=== PATIENT | female | born 1990 | race African-American/Black ===

== ENCOUNTER 2020-07-05 15:15 | Outpatient (CLI) | payer OTHER, SELFPAY ==
--- NOTE | ~2020-07-05 | US_ITS ---
EXAMINATION: US OB <= 14 weeks fetus EXAM DATE: 07/05/2020 16:15 INDICATION: Routine care. Dating. 1st trimester. TECHNIQUE: Pelvic obstetrical transabdominal sonogram was performed by a technologist. There are mu ltiple grayscale and Doppler images available for interpretation. There are no earlier studies of th is gestation for comparison. FINDINGS: Uterus measures 10.8 x 5.4 x 6.9 cm. There is intrauterine gestation sac. pole with heart rate confirmed at 176 beats per minute. The 2.8 cm crown-rump length corresponds to estimated gestational age by ultrasound of 9 weeks 4 days, estimated date of confinement 02/03/2021. Yolk sac is identified. There is no sonographic evidence of subchorionic hemorrhage. Right ovary morpholog ically normal, the left is not identified. IMPRESSION: Live gestation age by ultrasound 9 weeks 4 days. Reviewed, dictated and finalized at location A. STERED NURSE TEACHER
== END 2020-07-05 15:16 | disposition home or self-care (01) ==
PROVIDERS: Visit Provider Obstetrics & Gynecology
DX: Z34.91 Encounter for supervision of normal pregnancy, unspecified, first trimester (principal); Z3A.09 9 weeks gestation of pregnancy
CPT/HCPCS: 76801

== ENCOUNTER 2020-09-04 11:33 | Outpatient (CLI) | payer OTHER, SELFPAY ==
--- NOTE | ~2020-09-04 | US_ITS ---
US OB /maternal detail DATE: 09/04/2020 12:29 INDICATION: anatomy screen TECHNIQUE: Real-time imaging and Doppler analysis COMPARISON: 07/05/2020 obstetrical ultrasound FINDINGS: Live hernandez intrauterine gestation, fetus in longitudinal lie, vertex presentation. Ante rior placenta. Subjectively normal amount of amniotic fluid. No cerebral ventriculomegaly. Normal cerebellum. Normal nuchal fold. The spine appe ars normal. Four-chamber heart with heart rate 147 bpm. The diaphragm is intact. No evide nce of hydronephrosis. Fluid is demonstrated in the stomach and urinary bladder. Three-vessel umbilical cord with normal insertion at abdominal wall. extremities are unre markable. female external genitalia. Biparietal diameter 4.11 cm; 18 weeks 3 days Head circumference 15.05 cm; 18 weeks 1 day Abdominal circumference 12.32 cm; 18 weeks 0 days Femur length 2.58 cm; 17 weeks 6 days Composite age by Hadlock formula is 18 weeks 1 day +/- 1 week 2 days; MAGGIE is 02/04/2021, compared to by LMP and 02/03/2021 by the prior ultrasound of 07/05/2020. Estimated weight is 216.5 +/- 32.5 g. Estimated weight-GP: 14.4% Head circumference/abdominal circumference 1.22, within normal range of 1.08-1.27. Femur length/head circumference 17.16, within normal range of 15.84-18.04 IMPRESSION: Normal anatomy screen Reviewed, dictated and finalized at Location A. Reviewed, dictated and finalized at location B. STILL OPERATOR IMPRESSION: Normal anatomy screen
== END 2020-09-04 11:34 | disposition home or self-care (01) ==
PROVIDERS: PCP Internal Medicine Infectious Disease; Visit Provider Obstetrics & Gynecology
DX: Z34.91 Encounter for supervision of normal pregnancy, unspecified, first trimester (principal); Z3A.00 Weeks of gestation of pregnancy not specified
CPT/HCPCS: 76805

== ENCOUNTER 2020-09-11 12:26 | Observation (INO) | payer OTHER, SELFPAY ==
--- NOTE | ~2020-09-11 | US_ITS ---
EXAMINATION: US OB limited DATE: 09/11/2020 13:17 INDICATION: Miscarriage at second trimester of . TECHNIQUE: Real-time ultrasound of the pelvis was performed. The interpreting radiologist was not pre sent for the study. COMPARISON: None. FINDINGS: There is a single living fetus in breech presentation. The placenta is anterior. heart rate is 144 beats per minute (bpm). There is no discernible amniotic fluid surrounding the fetus. IMPRESSION: 1. Single living fetus in breech presentation with heart rate of 142 bpm. 2. Oligohydramnios with no discernible amniotic fluid surrounding the fetus with subjectively normal amount fluid surrounding the fetus on the ultrasound performed one week prior. Correlate for leaking fluids. Reviewed, dictated and finalized at location A. SURE TESTER IMPRESSION: 1. Single living fetus in breech presentation with heart rate of 142 bpm . 2. Oligohydramnios with no discernible amniotic fluid surrounding the fetus wit h subjectively normal amount fluid surrounding the fetus on the ultrasound perf ormed one week prior. Correlate for leaking fluids.
[2020-09-11 12:36] VITALS: BP 155/92; PULSE 103; RESP 14; TEMP 36.6; O2SAT 100
--- NOTE | 2020-09-11 13:06 | PC.NURSE ---
OB here at this time with ultrasound
--- NOTE | 2020-09-11 13:20 | PC.NURSE ---
OB nurse at bedside w/ patient at this time.
[2020-09-11 13:21] VITALS: BP 144/98; PULSE 17; RESP 15; O2SAT 100
--- NOTE | 2020-09-11 13:21 | ED.FEMALEGU ---
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 Reports she went to wipe her vagina and there is mucus-like discharge that was pinkish and she felt like there is extra tissue within her vagina. No lower abdominal cramping or contractions. Denies overt vaginal bleeding. G1, P0 19 weeks in gestation. She sees Dr. Salgado. Review of Systems Review of Systems: All systems reviewed & are unremarkable except as noted in HPI and below Gastrointestinal: Gastrointestinal: Denies abdominal pain, Denies diarrhea, Denies nausea and Denies vomiting Genitourinary: Genitourinary: Reports abnormal vaginal bleeding, Denies hematuria, Denies dysuria and Denies vaginal discharge PMF Past Medical History Medical History (Updated 09/11/20 @ 13:47 by Farhan Koo MD) Healthy female adult Social History Social History (Updated 09/11/20 @ 13:47 by Farhan Koo MD) Smoking status: Never smoker Gender identity (if verbalized by the patient): Female Exam Narrative: Exam Narrative: GENERAL: Well-appearing, well-nourished, and in no acute distress. HEAD: Normocephalic, atraumatic. CHEST: Clear to auscultation. No respiratory distress. HEART: Regular rate and rhythm. Normal peripheral pulses. ABDOMEN: Soft, nontender, nondistended. EXTREMITIES: Normal range of motion. No edema. : Normal-appearing external genitalia. Speculum inserted and there were 2 feet from the fetus extending through the cervical os. Small amount mucus-like discharge, no bleeding. SKIN: Warm, dry, no rash. NEURO: Alert and oriented x3. PSYCH: Normal mood and affect. Course Reevaluation(s) Reevaluation #1: Ultrasound at bedside. Patient has a IUP without any fluid around the baby with heart tones at [address] D[address] case [address] 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 He does not want any of that medication be given in the ER and would like to be contacted by OB when she arrives. Date: 09/11/20 Time: 13:22 Vital Signs Vital signs: Vital Signs Temperature 97.8 F 09/11/20 12:36 Pulse Rate 103 H 09/11/20 12:36 Respiratory Rate 14 09/11/20 12:36 Blood Pressure 155/92 H 09/11/20 12:36 Pulse Oximetry 100 09/11/20 12:36 Temperature 97.8 F 09/11/20 12:36 Pulse Rate 89 09/11/20 13:34 Respiratory Rate 15 09/11/20 13:34 Blood Pressure 144/98 H 09/11/20 13:34 Pulse Oximetry 98 09/11/20 13:34 MDM - Female Genitourinary Imaging Data Radiologist's impression: ITS Impressions Obstetrics Ultrasound 09/11/20 13:21 IMPRESSION: 1. Single living fetus in breech presentation with heart rate of 142 bpm. 2. Oligohydramnios with no discernible amniotic fluid surrounding the fetus with subjectively normal amount fluid surrounding the fetus on the ultrasound performed one week prior. Correlate for leaking fluids. Discharge Plan Discharge Clinical Impression: , inevitable Patient Disposition: Still a Patient Condition: Stable
[2020-09-11 13:34] VITALS: BP 144/98; PULSE 89; RESP 15; O2SAT 98
--- NOTE | 2020-09-11 13:35 | OBADM ---
This patient, Jane Fair, admitted to the OB room Labor/Delivery/Recovery 110 for observation. Patient/family oriented to hospital policies and general routines including ID bracelet, bed and alarms, visiting hours, pain management, procedures, bathroom and other care routines, personal items, smoking policy, room service/diet, and visiting hours. Patient/Family are encouraged to report perceived risks to care and to ask questions if they do not understand what they are told or what they should do. Pt brought from ER due to 19week fetus with feet through cervix. No fluid noted on ultrasound. heart tones present.
--- NOTE | 2020-09-11 14:00 | PC.NURSE ---
Called Dr. Salgado to get orders. Report given to him from ER doctor. Hold orders from ER. Will call [place] to coordinate transfer. Will call with orders.
--- NOTE | 2020-09-11 15:17 | PC.NURSE ---
Dr. Salgado called with orders to discharge pt to drive to [facility]
--- NOTE | 2020-09-11 15:28 | PC.NURSE ---
Pt states that she doesn't have a ride to get to [place]. Requesting ambulance to transport. Called [place] to to coordinate transportation for pt. Instructed to have Dr. Salgado call with report.
--- NOTE | 2020-09-11 15:41 | PC.NURSE ---
Dr. Salgado called requesting to be transferred to pt's room to discuss plan of care. Dr. Salgado called back with plan of care. Instructed to discharge pt to drive to [place] for evaluation.
[2020-09-11 16:40] VITALS: BMI 51.3
--- NOTE | 2020-09-17 07:51 | PM.OBTRLD ---
OB - Triage/Final Diagnosis Visit Information Comments/Additional reasons for admission: I have assessed the risk for this patient, Jane Fair, and determined that she would benefit from observation care. Final Diagnosis (1) , inevitable: Code(s): O03.4 - Incomplete spontaneous without complication Status: Acute
== END 2020-09-11 16:35 | disposition home or self-care (01) ==
LOC: ANHED 13:25 → ANHLDR 13:44
PROVIDERS: Admitting Provider Obstetrics & Gynecology; Emergency Provider Emergency Medicine; PCP Internal Medicine Infectious Disease; Visit Provider Obstetrics & Gynecology
DX: O03.4 Incomplete spontaneous abortion without complication (principal); O41.02X0 Oligohydramnios, second trimester, not applicable or unspecified; Z3A.19 19 weeks gestation of pregnancy
CPT/HCPCS: 76815; 99285; G0378; G0379

== ENCOUNTER 2021-01-25 09:46 | Outpatient (CLI) | payer OTHER, SELFPAY ==
--- NOTE | ~2021-01-25 | US_ITS ---
EXAMINATION: US OB <= 14 weeks fetus EXAM DATE: 01/25/2021 11:28 INDICATION: Encounter for supervision of normal . 1st trimester. TECHNIQUE: Pelvic obstetrical transabdominal sonogram was performed by a technologist. There are mu ltiple grayscale and Doppler images available for interpretation. FINDINGS: Uterus measures 12.8 x 8.8 x 6.0 cm. There is intrauterine gestation sac. pole with heart rate confirmed at 169 beats per minute. The 3.1 cm crown-rump length corresponds to estimated gestational age by ultrasound of 10 weeks 0 days, estimated date of confinement 08/23/2021. Yolk sac is identified. There is no sonographic evidence of subchorionic hemorrhage. Right ovary measures 5.0 x 2.5 x 2.8 cm, may have the corpus luteal cyst. The left ovary measures 4.9 x 3.5 x 2.7 cm. Flow confirmed within both ovaries. IMPRESSION: Live intrauterine gestation, age by ultrasound 10 weeks 0 days. Reviewed, dictated and finalized at location B.
== END 2021-01-25 09:47 | disposition home or self-care (01) ==
PROVIDERS: PCP Internal Medicine Infectious Disease; Visit Provider Obstetrics & Gynecology
DX: Z34.91 Encounter for supervision of normal pregnancy, unspecified, first trimester (principal); Z3A.10 10 weeks gestation of pregnancy
CPT/HCPCS: 76801